=== PATIENT | male | born 1985 | race Caucasian/White ===

== ENCOUNTER 2021-01-23 09:58 | Emergency (ER) | payer OTHER ==
[2021-01-23 10:02] VITALS: BP 159/102; PULSE 80; RESP 18; TEMP 98.5
[2021-01-23] MEDS ORDERED: ACET/COD 300 MG/30 MG STARTER PACK 6 TAB BTL PO STA (10:32)
--- NOTE | 2021-01-23 10:32 | ED ---
ENT HPI - General Chief complaint: Dental/Oral Stated complaint: oral pain Time Seen by Provider: 01/23/21 10:04 Source: patient, RN notes reviewed Mode of arrival: ambulatory Limitations: no limitations - History of Present Illness Initial comments: This is a 35-year-old male presents emergency Department chief complaint abdominal pain. Patient states that he has very poor dentition states that he had a prior abscess tooth states it feels very similar. Patient has been in the front radiates up towards his cheek. No fevers or chills no difficulty swallowing no stenting headache, dizziness or back pain, neck pain. - Related Data Previous Rx's Medication Instructions Recorded Acetaminophen-Codeine 300-30mg 1 tab PO Q6H PRN #15 tablet 10/07/17 [Tylenol #3] Penicillin V Potassium [Pen Vee K] 500 mg PO Q6H #40 tablet 10/07/17 Penicillin V Potassium [Pen Vee K] 500 mg PO QID #40 tablet 01/23/21 Allergies Allergy/AdvReac Type Severity Reaction Status Date / Time naproxen [From Naprosyn] Allergy Swelling Verified 10/07/17 17:21 Review of Systems ROS Statement: Those systems with pertinent positive or pertinent negative responses have been documented in the HPI. ROS Other: All systems not noted in ROS Statement are negative. Past Medical History Past Medical History: No Reported History History of Any Multi-Drug Resistant Organisms: None Reported Past Surgical History: Appendectomy, Orthopedic Surgery Additional Past Surgical History / Comment(s): L leg, R ear Past Psychological History: No Psychological Hx Reported Smoking Status: Current every day smoker Past Alcohol Use History: Occasional Past Drug Use History: Marijuana General Exam Limitations: no limitations General appearance: alert, in no apparent distress Head exam: Present: atraumatic, normocephalic, normal inspection Eye exam: Present: normal appearance, PERRL, EOMI. Absent: scleral icterus, conjunctival injection, periorbital swelling ENT exam: Present: mucous membranes moist, TM's normal bilaterally, normal external ear exam. Absent: normal oropharynx (Edentulous, multiple dental caries dental fractures. Patient has no drainable abscess he does have some mild swelling in his right cheek. Patient has mild tenderness) Neck exam: Present: normal inspection, full ROM. Absent: tenderness, meningismus, lymphadenopathy Respiratory exam: Present: normal lung sounds bilaterally. Absent: respiratory distress, wheezes, rales, rhonchi, stridor Cardiovascular Exam: Present: regular rate, normal rhythm, normal heart sounds. Absent: systolic murmur, diastolic murmur, rubs, gallop, clicks Course Vital Signs 01/23/21 09:59 Temperature 98.5 F Pulse Rate 80 Respiratory 18 Rate Blood Pressure 159/102 O2 Sat by Pulse 99 Oximetry Medical Decision Making - Medical Decision Making Patient is underlying dental infection. Patient placed on antibiotics. Patient reports ALLERGY to naproxen unclear if he can take any other NSAIDs. Patient discharged without codeine return parameters discussed. Disposition Clinical Impression: Dental caries, Dental infection Disposition: HOME SELF-CARE Condition: Stable Instructions (If sedation given, give patient instructions): Toothache (ED) Additional Instructions: Please return to the Emergency Department if symptoms worsen or any other concerns. Prescriptions: Penicillin V Potassium [Pen Vee K] 500 mg PO QID #40 tablet Is patient prescribed a controlled substance at d/c from ED?: No Referrals: None,Stated [Primary Care Provider] - 1-2 days Time of Disposition: 10:32
== END 2021-01-23 10:47 | disposition home or self-care (01) ==
LOC: EC 09:58
DX: K04.7 Periapical abscess without sinus (principal); K02.9 Dental caries, unspecified; F17.200 Nicotine dependence, unspecified, uncomplicated
CPT/HCPCS: 99283

== ENCOUNTER 2021-03-26 20:47 | Emergency (ER) | payer BC ==
[2021-03-26 20:52] VITALS: BP 161/90; PULSE 65; RESP 19; TEMP 97.9
[2021-03-26] MEDS ORDERED: ACET/COD 300 MG/30 MG STARTER PACK 6 TAB BTL PO STA (21:10)
--- NOTE | 2021-03-26 21:10 | ED ---
ENT HPI - General Chief complaint: Dental/Oral Stated complaint: Oral pain Source: patient, RN notes reviewed Mode of arrival: ambulatory - History of Present Illness Initial comments: Patient is a 35-year-old male presents emergency department with a underlying dental infection. He notes that he has had this in the past and feels very similar. He notes his right sided radiates towards itchy. He denied any fever. He denied any headaches. He notes that he is going to schedule an appointment with his dentist here in the next several days as he just got insurance through his work. He notes that he was seen approximately a month to 2 months ago was given antibiotics it took care of the abscess in the meantime while he was waiting for insurance. Patient notes that he does have a history of very poor dentition and has had several dental infections the past. She denied any other complaints or issues at this time. He notes that his pain is approximately an 8 out of 10. He denied any difficulty eating, chewing, swallowing, fever, fatigue chills nausea vomiting diarrhea constipation - Related Data Previous Rx's Medication Instructions Recorded Acetaminophen-Codeine 300-30mg 1 tab PO Q6H PRN #15 tablet 10/07/17 [Tylenol #3] Penicillin V Potassium [Pen Vee K] 500 mg PO Q6H #40 tablet 10/07/17 Penicillin V Potassium [Pen Vee K] 500 mg PO QID #40 tablet 01/23/21 Sulfamethox-Tmp 800-160Mg [Bactrim 1 each PO Q12HR #20 tab 03/26/21 Ds] Allergies Allergy/AdvReac Type Severity Reaction Status Date / Time naproxen [From Naprosyn] Allergy Swelling Verified 03/26/21 20:52 Review of Systems ROS Statement: Those systems with pertinent positive or pertinent negative responses have been documented in the HPI. ROS Other: All systems not noted in ROS Statement are negative. Past Medical History Past Medical History: No Reported History History of Any Multi-Drug Resistant Organisms: None Reported Past Surgical History: Appendectomy, Orthopedic Surgery Additional Past Surgical History / Comment(s): L leg, R ear Past Psychological History: No Psychological Hx Reported Smoking Status: Current every day smoker Past Alcohol Use History: Occasional Past Drug Use History: Marijuana General Exam General appearance: alert, in no apparent distress Head exam: Present: atraumatic, normocephalic, normal inspection Eye exam: Present: normal appearance, PERRL, EOMI. Absent: scleral icterus, conjunctival injection, periorbital swelling ENT exam: Present: normal exam, normal oropharynx, mucous membranes moist Expanded Teeth exam: Present: dental caries, other (Very poor dentition.). Absent: normal inspection Neck exam: Present: normal inspection. Absent: tenderness, meningismus, lymphadenopathy Respiratory exam: Present: normal lung sounds bilaterally. Absent: respiratory distress, wheezes, rales, rhonchi, stridor Cardiovascular Exam: Present: regular rate, normal rhythm, normal heart sounds. Absent: systolic murmur, diastolic murmur, rubs, gallop, clicks GI/Abdominal exam: Present: soft, normal bowel sounds. Absent: distended, tenderness, guarding, rebound, rigid Extremities exam: Present: normal inspection, full ROM, normal capillary refill. Absent: tenderness, pedal edema, joint swelling, calf tenderness Neurological exam: Present: alert, oriented X3, CN II-XII intact Psychiatric exam: Present: normal affect, normal mood Skin exam: Present: warm, dry, intact, normal color. Absent: rash Course Vital Signs 03/26/21 20:50 Temperature 97.9 F Pulse Rate 65 Respiratory 19 Rate Blood Pressure 161/90 O2 Sat by Pulse 98 Oximetry Medical Decision Making - Medical Decision Making 35-year-old male with history of dental infections complaining of a similar sensation on the right upper side. No visible abscess or fluctuant area noted. Patient is just requesting some antibiotics and pain control at this time to carry him over until he can schedule but with his dentist. Case discussed with Dr. Brandt outpatient discharge home with follow-up to dentist. Disposition Clinical Impression: Dental abscess, Dental caries Disposition: HOME SELF-CARE Condition: Stable Instructions (If sedation given, give patient instructions): Dental Abscess (ED) Additional Instructions: Please return to the Emergency Department if symptoms worsen or any other concerns. Follow-up with primary care and dentist next 2-3 days. Take antibiotics as prescribed until complete. Prescriptions: Sulfamethox-Tmp 800-160Mg [Bactrim Ds] 1 each PO Q12HR #20 tab Is patient prescribed a controlled substance at d/c from ED?: No Referrals: None,Stated [Primary Care Provider] - 1-2 days Time of Disposition: 21:19
== END 2021-03-26 21:30 | disposition home or self-care (01) ==
LOC: EC 20:47
DX: K04.7 Periapical abscess without sinus (principal); K02.9 Dental caries, unspecified; F17.200 Nicotine dependence, unspecified, uncomplicated; F12.90 Cannabis use, unspecified, uncomplicated
CPT/HCPCS: 99282

== ENCOUNTER 2021-03-27 07:26 | Emergency (ER) | payer BC ==
[2021-03-27 07:30] VITALS: RESP 18
[2021-03-27] MEDS ORDERED: cefTRIAXone 1,000 MG VIAL (IM USE) IM STA (07:37)
[2021-03-27] MEDS ORDERED: BUPIVACAINE (PF) 0.5% 30 ML VIAL SQ STA (07:37)
[2021-03-27] MEDS ORDERED: ACET/COD 300 MG/30 MG STARTER PACK 6 TAB BTL PO STA (07:37)
--- NOTE | 2021-03-27 07:40 | ED ---
ENT HPI - General Chief complaint: Dental/Oral Stated complaint: dental abscess-revisit Time Seen by Provider: 03/27/21 07:30 Source: patient, RN notes reviewed, old records reviewed Mode of arrival: ambulatory Limitations: no limitations - History of Present Illness Initial comments: This is a 35-year-old male who presents to the ER for evaluation for a dental abscess. Patient was seen last night and reports that he started to have pain and minor swelling to the face at that time. He did not pick remover the antibiotic. He reports he woke this morning with significant swelling pain to the right upper cheek. Patient states that he has no other complaints. He does not have a dentist that he seeing at this time. - Related Data Previous Rx's Medication Instructions Recorded Acetaminophen-Codeine 300-30mg 1 tab PO Q6H PRN #15 tablet 10/07/17 [Tylenol #3] Penicillin V Potassium [Pen Vee K] 500 mg PO Q6H #40 tablet 10/07/17 Penicillin V Potassium [Pen Vee K] 500 mg PO QID #40 tablet 01/23/21 Sulfamethox-Tmp 800-160Mg [Bactrim 1 each PO Q12HR #20 tab 03/26/21 Ds] Acetaminophen-Codeine 300-30mg 1 tab PO Q6H PRN 3 Days #12 tablet 03/27/21 [Tylenol w/codeine #3] Penicillin V Potassium [Pen Vee K] 500 mg PO QID #40 tablet 03/27/21 Allergies Allergy/AdvReac Type Severity Reaction Status Date / Time naproxen [From Naprosyn] Allergy Swelling Verified 03/27/21 07:27 Review of Systems ROS Statement: Those systems with pertinent positive or pertinent negative responses have been documented in the HPI. ROS Other: All systems not noted in ROS Statement are negative. Past Medical History Past Medical History: No Reported History History of Any Multi-Drug Resistant Organisms: None Reported Past Surgical History: Appendectomy, Orthopedic Surgery Additional Past Surgical History / Comment(s): L leg, R ear Past Psychological History: No Psychological Hx Reported Smoking Status: Current every day smoker Past Alcohol Use History: Occasional Past Drug Use History: Marijuana General Exam - General Exam Comments Initial Comments: This is a 35-year-old male. Limitations: no limitations General appearance: alert, in no apparent distress Head exam: Present: atraumatic, normocephalic, normal inspection Eye exam: Present: normal appearance, PERRL, EOMI. Absent: scleral icterus, conjunctival injection, periorbital swelling ENT exam: Present: normal oropharynx (Chest poor dentition. Evidence of swelling erythema to the right maxilla), mucous membranes moist. Absent: normal exam Neck exam: Present: normal inspection. Absent: tenderness, meningismus, lymphadenopathy Respiratory exam: Present: normal lung sounds bilaterally. Absent: respiratory distress, wheezes, rales, rhonchi, stridor Cardiovascular Exam: Present: regular rate GI/Abdominal exam: Present: soft, normal bowel sounds. Absent: distended, tenderness, guarding, rebound, rigid Extremities exam: Present: normal inspection, full ROM, normal capillary refill. Absent: tenderness, pedal edema, joint swelling, calf tenderness Back exam: Present: normal inspection Neurological exam: Present: alert Psychiatric exam: Present: normal affect, normal mood Skin exam: Present: warm, dry, intact, normal color. Absent: rash Course Vital Signs 03/27/21 07:27 Temperature 98.1 F Pulse Rate 92 Respiratory 18 Rate Blood Pressure 181/114 O2 Sat by Pulse 96 Oximetry Procedures - Incision & Drainage Indication: right periapical abscess Site: oral Size (cm): 2 Anesthetic Used: benzocaine 0.25% Amount (mLs): 5 Scalpel Used: #11 I&D Drainage Obtained: Pus, Blood Patient Tolerated Procedure: well, no complications - Nerve Block Local Anesthetic Used: Marcaine 0.5% Amount of anesthesia used: 5 Side: right Intraoral Nerve Block: superior alveolar Procedure Successful: Yes Complications: none Patient Tolerated Procedure: well, no complications Medical Decision Making - Medical Decision Making 35 year old male presents to the ER for complaints of right maxilla pain and swelling. He reports it started with dental pain in the right upper incisor. He has history of poor dentition multiple dental caries. Patient's face is swollen today. He did have incision and drainage 5 mL of Prelone fluid was removed. Patient does report feeling better. Advised Patient to take antibiotic implant warm compresses. Advised to follow-up with dentist. Discussed return parameters. Disposition Clinical Impression: Dental abscess Disposition: HOME SELF-CARE Condition: Good Instructions (If sedation given, give patient instructions): Dental Abscess (ED) Additional Instructions: Take the antibiotics as prescribed. Follow up with dentist this week. Patient should do Listerine and salt water rinses. Patient can apply warm compresses over the cheek. [facility] [address] [place] [address] [phone] (existing clients only) For new clients: [phone] 1st consult: $50 (includes Xrays) Usually 30% less then private dentist for visits after. [employer] Have to pay $50 for Xrays anmd rest is covered. [phone] Prescriptions: Penicillin V Potassium [Pen Vee K] 500 mg PO QID #40 tablet Acetaminophen-Codeine 300-30mg [Tylenol w/codeine #3] 1 tab PO Q6H PRN 3 Days #12 tablet PRN Reason: Pain Is patient prescribed a controlled substance at d/c from ED?: No Referrals: None,Stated [Primary Care Provider] - 1-2 days Time of Disposition: 08:25
[2021-03-27] MEDS ORDERED: PENICILLIN VK 500MG STARTER 4 TAB BTL PO STA (08:22)
[2021-03-27 08:38] VITALS: BP 148/92; PULSE 88; TEMP 98.8
== END 2021-03-27 08:38 | disposition home or self-care (01) ==
LOC: EC 07:26
DX: K04.7 Periapical abscess without sinus (principal); F17.200 Nicotine dependence, unspecified, uncomplicated; Z88.6 Allergy status to analgesic agent
CPT/HCPCS: 41800; 99282; 96372; J0696

== ENCOUNTER 2021-09-29 13:56 | Emergency (ER) | payer SELFPAY ==
--- NOTE | 2021-09-29 18:45 | XR ---
EXAMINATION TYPE: XR lumbar spine 2 or 3V DATE OF EXAM: 09/29/2021 COMPARISON: None HISTORY: Low back pain TECHNIQUE: Three-view lumbar spine FINDINGS: There are 5 lumbar-type vertebral bodies. Pedicles are intact. Disc heights are preserved. Vertebral body heights are preserved. Alignment is normal. IMPRESSION: 1. Normal three-view lumbar spine
--- NOTE | 2021-09-29 19:14 | ED ---
Back Pain HPI - General Chief Complaint: Back Pain/Injury Stated Complaint: Back Pain Time Seen by Provider: 09/29/21 17:52 Source: patient Limitations: no limitations - History of Present Illness Initial Comments: Patient complains of low back pain. He has had back pain off and on for 10 years. He feels like it is worse now. He has no loss of bowel or bladder continence. He has no urinary retention. He reports no risk factors for epidural abscess. He has no saddle anesthesia. He has no belly pain. The pain is crampy. It doesn't radiate anywhere. It is worse with movement. He took no medicine for this prior to arrival. - Related Data Previous Rx's Medication Instructions Recorded Methocarbamol [Robaxin-750] 1,500 mg PO BID PRN #20 tablet 09/29/21 Allergies Allergy/AdvReac Type Severity Reaction Status Date / Time naproxen [From Naprosyn] Allergy Swelling Verified 09/29/21 18:32 Review of Systems ROS Statement: Those systems with pertinent positive or pertinent negative responses have been documented in the HPI. ROS Other: All systems not noted in ROS Statement are negative. Past Medical History Past Medical History: No Reported History History of Any Multi-Drug Resistant Organisms: None Reported Past Surgical History: Appendectomy, Orthopedic Surgery Additional Past Surgical History / Comment(s): L leg, R ear Past Psychological History: No Psychological Hx Reported Smoking Status: Current every day smoker Past Alcohol Use History: Occasional Past Drug Use History: Marijuana General Exam Limitations: no limitations General appearance: alert, in no apparent distress Head exam: Present: atraumatic, normocephalic, normal inspection Eye exam: Present: normal appearance, PERRL, EOMI. Absent: scleral icterus, conjunctival injection, periorbital swelling ENT exam: Present: normal exam, mucous membranes moist Neck exam: Present: normal inspection. Absent: tenderness, meningismus, lymphadenopathy Respiratory exam: Present: normal lung sounds bilaterally. Absent: respiratory distress, wheezes, rales, rhonchi, stridor Cardiovascular Exam: Present: regular rate, normal rhythm, normal heart sounds. Absent: systolic murmur, diastolic murmur, rubs, gallop, clicks GI/Abdominal exam: Present: soft, normal bowel sounds. Absent: distended, tenderness, guarding, rebound, rigid Extremities exam: Present: normal inspection, full ROM, normal capillary refill. Absent: tenderness, pedal edema, joint swelling, calf tenderness Back exam: Present: normal inspection Neurological exam: Present: alert, oriented X3, CN II-XII intact Psychiatric exam: Present: normal affect, normal mood Skin exam: Present: warm, dry, intact, normal color. Absent: rash Course Vital Signs 09/29/21 14:46 Temperature 98.9 F Pulse Rate 85 Respiratory 19 Rate Blood Pressure 185/88 O2 Sat by Pulse 97 Oximetry Medical Decision Making - Medical Decision Making Patient complains of low back pain. He has absolutely no neurological deficits and no physical exam findings. X-rays of the lumbar spine are unremarkable. I will prescribe him a muscle relaxer. He is stable for discharge. Disposition Clinical Impression: Mechanical back pain Disposition: HOME SELF-CARE Condition: Good Instructions (If sedation given, give patient instructions): Acute Low Back Pain (ED) Prescriptions: Methocarbamol [Robaxin-750] 1,500 mg PO BID PRN #20 tablet PRN Reason: Muscle Pain Is patient prescribed a controlled substance at d/c from ED?: No Referrals: None,Stated [Primary Care Provider] - 1-2 days
[2021-09-29 19:37] VITALS: BP 175/89; PULSE 86; RESP 20; TEMP 98.1
== END 2021-09-29 19:36 | disposition home or self-care (01) ==
LOC: EC 13:56
DX: M54.50 Low back pain, unspecified (principal); F17.200 Nicotine dependence, unspecified, uncomplicated; F12.90 Cannabis use, unspecified, uncomplicated; Z72.89 Other problems related to lifestyle
CPT/HCPCS: 72100; 99283